=== PATIENT | female | born 1995 | race Caucasian/White ===

== ENCOUNTER → 2020-04-01 | Outpatient (CLI) | payer BC, OTHER ==
--- NOTE | 2020-05-14 08:33 | REP ---
PELVIC ULTRASOUND INCLUDING TRANSABDOMINAL, ENDOVAGINAL, AND COLOR DOPPLER ASSESSMENT Delay in reporting results from hospital computer system malfunction from malware/ ransomware. HISTORY: Study is performed for polycystic ovarian syndrome (PCOS). FINDINGS: The uterus is anteverted and normal size measuring 8.3 x 4.0 x 4.9 cm. The endometrium is not thickened measuring 7.8 mm. I suspect there is a small volume of blood in the endometrial canal. The technologist indicates that the patient is currently bleeding at the time of the ultrasound examination. There is focal mildly heterogeneous myometrium at the uterine fundus, possibly a small fibroid. The right ovary measures 2.5 x 4.2 x 2.0 cm and is normal size. There are no dominant masses or cysts. There is vascular flow with the Doppler resistive index in the parenchymal arteries measuring 0.55. The left ovary is normal size measuring 1.9 x 3.0 x 2.1 cm. There are no dominant masses or cysts. There is vascular flow with the Doppler resistive index in the parenchymal arteries measuring 0.45. IMPRESSION: Essentially negative pelvic ultrasound except for focal mildly heterogeneous endometrium at the uterine fundus, possibly a small fibroid. I suspect there is a small volume of blood in the endometrial canal. The patient is bleeding at the time of the examination. MTDD
== END ==
LOC: M WHC 17:49
PROVIDERS: ATTEND Advanced Practice Midwife
DX: N92.0 Excessive and frequent menstruation with regular cycle (principal); Z87.42 Personal history of other diseases of the female genital tract

== ENCOUNTER → 2020-05-06 | Outpatient (REF) | payer OTHER | LOC: M SFHCWAGY 17:07 | PROVIDERS: ATTEND Advanced Practice Midwife | DX: Z12.4 Encounter for screening for malignant neoplasm of cervix (principal) ==

== ENCOUNTER → 2020-06-03 | Outpatient (REF) | payer OTHER ==
[2020-06-11 14:25] LABS: CHLAMYDIA DNA AMPLIFICATION NEGATIVE (NEGATIVE); GC DNA AMPLIFICATION NEGATIVE (NEGATIVE)
== END ==
LOC: M SFHCWAGY 09:57
PROVIDERS: ATTEND Advanced Practice Midwife
DX: Z97.5 Presence of (intrauterine) contraceptive device (principal)

== ENCOUNTER → 2020-06-08 | Outpatient (REF) | payer OTHER ==
[2020-06-08 19:03] LABS: FREE T4 0.97 NG/DL (0.76-1.46); THYROID STIMULATING HORMONE 1.13 uIU/ML (0.358-3.740)
== END ==
LOC: M PLALAB 14:38
PROVIDERS: ATTEND Advanced Practice Midwife
DX: Z76.89 Persons encountering health services in other specified circumstances (principal); E55.9 Vitamin D deficiency, unspecified

== ENCOUNTER → 2020-06-16 | Outpatient (REF) | payer OTHER ==
[2020-06-16 15:22] LABS: BASO # 0.1 10^3/uL (0.0-0.2); EOS # 0.3 10^3/uL (0.0-0.5); HEMATOCRIT 40.8 % (36.0-47.0); HEMOGLOBIN 12.6 g/dl (12.0-15.5); LYMPH # 2.5 10^3/uL (1.5-5.0); LYMPH % 22.7 % (24.0-44.0); MEAN CORPUSCULAR HEMOGLOBIN 26.4 pg (27.0-33.0); MEAN CORPUSCULAR HGB CONC 30.9 g/dl (32.0-36.5); MEAN CORPUSCULAR VOLUME 85.4 fl (80.0-96.0); MONO # 0.8 10^3/uL (0.0-0.8); MONO % 7.2 % (0.0-5.0); NEUTROPHILS # 7.4 10^3/uL (1.5-8.5); NEUTROPHILS % 65.8 % (36.0-66.0); PLATELET COUNT, AUTOMATED 381 10^3/uL (150-450); RED BLOOD COUNT 4.78 10^6/uL (4.00-5.40); WHITE BLOOD COUNT 11.2 10^3/uL (4.0-10.0)
== END ==
LOC: M SFHCLERA 14:02
PROVIDERS: ATTEND Nurse Practitioner Family
DX: J03.80 Acute tonsillitis due to other specified organisms (principal)

== ENCOUNTER → 2020-07-09 | Outpatient (CLI) | payer OTHER ==
[2020-07-09 13:38] LABS: BASO # 0.1 10^3/uL (0.0-0.2); BASO % 1.2 % (0.0-1.0); EOS # 0.3 10^3/uL (0.0-0.5); EOS % 2.9 % (0.0-3.0); HEMOGLOBIN 12.4 g/dl (12.0-15.5); LYMPH # 2.5 10^3/uL (1.5-5.0); LYMPH % 23.9 % (24.0-44.0); MEAN CORPUSCULAR HEMOGLOBIN 25.8 pg (27.0-33.0); MEAN CORPUSCULAR HGB CONC 30.2 g/dl (32.0-36.5); MEAN CORPUSCULAR VOLUME 85.4 fl (80.0-96.0); MONO # 0.7 10^3/uL (0.0-0.8); MONO % 6.8 % (0.0-5.0); NEUTROPHILS # 6.8 10^3/uL (1.5-8.5); NEUTROPHILS % 64.9 % (36.0-66.0); PLATELET COUNT, AUTOMATED 437 10^3/uL (150-450); WHITE BLOOD COUNT 10.5 10^3/uL (4.0-10.0)
[2020-07-09 13:40] LABS: AMORPHOUS SEDIMENT SMALL (NEGATIVE); APPEARANCE, URINE HAZY (CLEAR); BACTERIA, URINE AUTO NEGATIVE (NEGATIVE); BILIRUBIN, URINE AUTO NEGATIVE (NEGATIVE); BLOOD, URINE BLOOD 2+ (NEGATIVE); COLOR, URINE YELLOW (YELLOW); GLUCOSE, URINE (UA) AUTO NEGATIVE (NEGATIVE); KETONE, URINE AUTO TRACE mg/dL (NEGATIVE); LEUKOCYTE ESTERASE, URINE AUTO NEGATIVE (NEGATIVE); MUCUS, URINE SMALL (NEGATIVE); NITRITE, URINE AUTO NEGATIVE (NEGATIVE); PROTEIN, URINE AUTO NEGATIVE (NEGATIVE); RBC, URINE AUTO 8 /HPF (0-3); SPECIFIC GRAVITY URINE AUTO 1.026 (1.002-1.035); SQUAMOUS EPITHELIAL CELL UR AU 6 /HPF (0-6); UROBILINOGEN, URINE AUTO 0.2 mg/dL (0.0-2.0); WBC, URINE AUTO 2 /HPF (0-3)
[2020-07-09 13:48] LABS: INR 0.95; PROTHROMBIN TIME 12.9 SECONDS (12.5-14.3)
[2020-07-09 14:16] LABS: ALT/SGPT 36 U/L (12-78); BILIRUBIN,TOTAL 0.2 MG/DL (0.2-1.0); BLOOD UREA NITROGEN 12 MG/DL (7-18); CALCIUM LEVEL 9.5 MG/DL (8.5-10.1); CARBON DIOXIDE LEVEL 29 MEQ/L (21-32); CHLORIDE LEVEL 104 MEQ/L (98-107); CHOLESTEROL LEVEL 172 MG/DL (<200); CHOLESTEROL RISK RATIO 5.058 (<5); CREATININE FOR GFR 0.64 MG/DL (0.55-1.30); FERRITIN 46 NG/ML (8-252); GLOMERULAR FILTRATION RATE > 60.0 (>60); GLUCOSE, FASTING 80 MG/DL (70-100); HDL CHOLESTEROL 34 MG/DL (>40); IRON (FE) 34 UG/DL (50-170); LDL CHOLESTEROL 112 MG/DL (<100); NON-HDL-C 138 MG/DL; PERCENT SATURATION 8.9 % (13.2-45.0); POTASSIUM SERUM 4.6 MEQ/L (3.5-5.1); SODIUM LEVEL 139 MEQ/L (136-145); TOTAL IRON BINDING CAPACITY 384 UG/DL (250-450); TOTAL PROTEIN 7.9 GM/DL (6.4-8.2); TRIGLYCERIDES LEVEL 132 MG/DL (<150)
[2020-07-09 14:19] LABS: VITAMIN B12 LEVEL 343 PG/ML (247-911)
[2020-07-09 14:20] LABS: FOLATE 12.8 NG/ML (>5.4)
[2020-07-09 14:28] LABS: HEMOGLOBIN A1c 5.6 %
== END ==
LOC: M PLALAB 12:04
PROVIDERS: ATTEND Surgery
DX: E66.01 Morbid (severe) obesity due to excess calories (principal)

== ENCOUNTER → 2020-07-09 | Outpatient (CLI) | payer BC, OTHER ==
--- NOTE | 2020-07-11 14:16 | ECGEPIP ---
[facility] Test Date: 2020-07-09 Pat Name: GARCIA BANKS Department: Room: - Gender: Female Credit Risk Manager: CAROLEE : 1995 Requested By: Natasha Vasquez Order Number: [id number] Reading MD: Darrell Art Measurements Intervals [place] Rate: 90 P: 9 OR: 120 QRS: 14 QRSD: 87 T: 24 QT: 343 QTc: 420 Interpretive Statements SINUS RHYTHM No prior tracing in the system Electronically Signed on 07-11-2020 14:16:26 EST by Darrell Art
== END ==
LOC: M EKG 12:47
PROVIDERS: ATTEND Surgery
DX: E66.01 Morbid (severe) obesity due to excess calories (principal)

== ENCOUNTER → 2020-08-26 | Outpatient (CLI) | payer BC, OTHER ==
[~2020-08-26] MED LIST: CETI5SOL3 PO; OMEP40CA97 PO; SPIR100T3
== END ==
LOC: M LABSMTC 10:05
PROVIDERS: ATTEND Anesthesiology
DX: Z01.812 Encounter for preprocedural laboratory examination (principal); Z20.822 Contact with and (suspected) exposure to COVID-19

== ENCOUNTER 2020-08-31 09:27 | Day surgery (SDC) | payer BC, OTHER ==
[~2020-08-31] VITALS: Ht 165.1 cm; Wt 109.8 kg
[2020-08-31] MEDS ORDERED: MIDAZOLAM INJ 2MG/2ML VIAL (J2250 PER 1MG) As Ordered ONE (10:32)
[2020-08-31] MEDS ORDERED: METOCLOPRAMIDE INJ 10MG/2ML VIAL (J2765 PER 1) As Ordered ONE (10:32)
[2020-08-31] MEDS ORDERED: LIDOCAINE PRES-FREE 2% 10ML AMP As Ordered ONE (10:32)
[2020-08-31] MEDS ORDERED: ONDANSETRON 4MG/2ML VIAL As Ordered ONE (10:32)
[2020-08-31] MEDS ORDERED: ROCURONIUM BROMIDE 50 MG/5 ML VIAL As Ordered ONE (10:32)
[2020-08-31] MEDS ORDERED: dexameTHASONE 4 MG/ML 1ML VIAL (J1100 PER 1MG) As Ordered ONE (10:32)
[2020-08-31] MEDS ORDERED: propofoL 200 MG/20 ML VIAL As Ordered ONE (10:32)
[2020-08-31] MEDS ORDERED: fentaNYL 100 MCG/2 ML INJECTION (J3010) As Ordered ONE (10:33)
[2020-08-31] MEDS ORDERED: LIDOCAINE W/EPINEPHRINE 1% 20ML VIAL As Ordered ONE (10:34)
[2020-08-31] MEDS ORDERED: BUPIVACAINE/EPIN 0.5% 30 ML VIAL As Ordered ONE (10:34)
[2020-08-31] MEDS ORDERED: SUGAMMADEX SODIUM 500 MG/5 ML VIAL (BRIDION) As Ordered ONE (11:02)
[2020-08-31] MEDS ORDERED: KETOROLAC 60MG 2ML VIAL As Ordered ONE (11:07)
[2020-08-31] MEDS ORDERED: PERCOCET 5MG/325MG TAB As Ordered ONE (11:51)
[2020-08-31] MEDS ORDERED: fentaNYL 100 MCG/2 ML INJECTION (J3010) IV PRN (12:00)
[2020-08-31] MEDS ORDERED: ONDANSETRON 4MG/2ML VIAL IV PRN (12:00)
[2020-08-31] MEDS ORDERED: PERCOCET 5MG/325MG TAB PO PRN (12:00)
[2020-08-31] MEDS ORDERED: METOCLOPRAMIDE INJ 10MG/2ML VIAL (J2765 PER 1) IV PRN (12:00)
[2020-08-31] MEDS ORDERED: LR 1,000 ML IV SCH ×2 (12:00)
[2020-08-31 13:10] VITALS: BP 125/69
--- NOTE | 2020-08-31 14:36 | RO ---
OPERATIVE NOTE DATE OF OPERATION: 08/31/2020 PREOPERATIVE DIAGNOSIS: Chronic tonsillitis. POSTOPERATIVE DIAGNOSIS: Chronic tonsillitis. PROCEDURE: Tonsillectomy. ANESTHESIA: General. DESCRIPTION OF PROCEDURE: With the patient intubated the patient was draped in the usual manner. I infiltrated the tonsil with Lidocaine with Epinephrine and Marcaine. Bovie with mouth gag was inserted. With traction on the left tonsil I dissected the tonsil free from its bed on the left side. The base and apex areas were cauterized. The same procedure was performed on the right side. The patient tolerated the procedure well. No blood loss. The patient was extubated and transferred to the recovery room in excellent condition.
== END 2020-08-31 13:20 | disposition home or self-care (01) ==
LOC: M SDC 09:27
PROVIDERS: ATTEND Otolaryngology
DX: J35.01 Chronic tonsillitis (principal); E28.2 Polycystic ovarian syndrome; M41.9 Scoliosis, unspecified; D64.9 Anemia, unspecified; F41.9 Anxiety disorder, unspecified; F32.9 Major depressive disorder, single episode, unspecified; Z88.0 Allergy status to penicillin; Z88.1 Allergy status to other antibiotic agents; Z91.040 Latex allergy status; Z91.048 Other nonmedicinal substance allergy status
CPT/HCPCS: 42826; 81025; 88302; J1100; J1885; J2250; J2405; J2765; J3010

== ENCOUNTER → 2020-12-15 | Outpatient (CLI) | payer BC, OTHER ==
--- NOTE | 2020-12-16 12:44 | SLEEPHOME ---
DATE: 12/15/2020 ORDERED BY: IKE Estrada Diagnostic home sleep testing was performed due to concern for the obstructive sleep apnea syndrome. For testing, a nocturnal T3 respiratory monitoring device was used. Continuous record was made of pulse, oxygen saturation, air flow, chest and abdominal strain, and body position. Nine hours and 39 minutes of data were reviewed. There were 5 hours and 58 minutes marked as time in bed and during the interval marked time in bed, there were 48 respiratory events identified of 10 seconds in duration or greater for a respiratory event index of 8. The events were not exclusive to sleep position. They were obstructive. Baseline pulse rate was 62. Pulse rate ranged 39 to 131. Baseline saturation was 96%. Saturations fell to 90% and testing was performed in both the supine and nonsupine positions. IMPRESSION: Abnormal home sleep testing with repetitive respiratory events and oxygen desaturations to 90% with a respiratory event index of 8 is consistent with the obstructive sleep apnea syndrome. RECOMMENDATION: The patient should be encouraged to undergo a formal sleep evaluation. Dr. Sienna White
== END ==
LOC: M SLEEP HO 12:22
PROVIDERS: ATTEND Nurse Practitioner Family
DX: R06.83 Snoring (principal)

== ENCOUNTER → 2021-01-12 | Outpatient (REF) | payer OTHER ==
[2021-01-12 17:42] LABS: BASO # 0.1 10^3/uL (0.0-0.2); BASO % 1.1 % (0.0-1.0); EOS # 0.4 10^3/uL (0.0-0.5); HEMATOCRIT 41.3 % (36.0-47.0); HEMOGLOBIN 12.7 g/dl (12.0-15.5); LYMPH # 2.5 10^3/uL (1.5-5.0); LYMPH % 28.2 % (24.0-44.0); MEAN CORPUSCULAR HEMOGLOBIN 27.4 pg (27.0-33.0); MEAN CORPUSCULAR HGB CONC 30.8 g/dl (32.0-36.5); MEAN CORPUSCULAR VOLUME 89.2 fl (80.0-96.0); MONO # 0.6 10^3/uL (0.0-0.8); MONO % 6.7 % (2.0-8.0); NEUTROPHILS # 5.3 10^3/uL (1.5-8.5); NEUTROPHILS % 59.7 % (36.0-66.0); PLATELET COUNT, AUTOMATED 369 10^3/uL (150-450); RED BLOOD COUNT 4.63 10^6/uL (4.00-5.40); WHITE BLOOD COUNT 8.9 10^3/uL (4.0-10.0)
[2021-01-12 18:20] LABS: FREE T4 1.03 NG/DL (0.76-1.46); THYROID STIMULATING HORMONE 0.607 uIU/ML (0.358-3.740)
[2021-01-12 19:41] LABS: HEMOGLOBIN A1c 5.1 %
== END ==
LOC: M PLALAB 14:46
PROVIDERS: ATTEND Nurse Practitioner Family
DX: L65.9 Nonscarring hair loss, unspecified (principal)

== ENCOUNTER → 2021-02-01 | Outpatient (CLI) | payer BC, OTHER ==
--- NOTE | 2021-02-01 09:36 | REP ---
INDICATION: OTH SYMPTOMS AND SIGNS INVOLVING THE CIRC AND RESP SYSTEMS cough and congestion. COMPARISON: None. TECHNIQUE: PA/Lateral FINDINGS: Lungs: Clear, no infiltrate. Heart: Normal in size. Mediastinum: Mediastinal silhouette unremarkable. Pleural angles: Unremarkable.. Bones and soft tissues: Unremarkable. IMPRESSION: No acute pulmonary disease. <Electronically signed by Mehdi Lauren > 02/01/21 [id number]
== END ==
LOC: M RAD 09:13
PROVIDERS: ATTEND Nurse Practitioner Family
DX: R09.89 Other specified symptoms and signs involving the circulatory and respiratory systems (principal)

== ENCOUNTER → 2021-02-18 | Outpatient (CLI) | payer BC, OTHER ==
[~2021-02-18] MED LIST changes: +OMEP40CA4 PO; -OMEP40CA97 PO
[2021-02-18 15:54] LABS: HEMOGLOBIN A1c 5.5 %
[2021-02-18 16:03] LABS: FOLLICLE STIMULATING HORMONE 5.2 mIU/mL; LUTEINIZING HORMONE 9.4 mIU/mL
[2021-03-04 20:34] LABS: 17 HYDROXY PROGESTERONE 82 ng/dL (.); TESTOSTERONE FREE (DIRECT) 6.4 pg/mL (0.0-4.2)
== END ==
LOC: M PLALAB 13:02
PROVIDERS: ATTEND Advanced Practice Midwife
DX: E28.2 Polycystic ovarian syndrome (principal)

== ENCOUNTER → 2021-03-26 | Outpatient (CLI) | payer BC, OTHER | LOC: M LAB 11:58 | PROVIDERS: ATTEND Advanced Practice Midwife | DX: E28.2 Polycystic ovarian syndrome (principal) ==

== ENCOUNTER → 2021-07-01 | Outpatient (CLI) | payer BC, OTHER ==
--- NOTE | 2021-07-01 14:56 | REP ---
Normal Doppler tracing with resistive index 0.48 and normal color flow no solid adnexal mass in either side nor adjacent free fluid. No fluid in the cul-de-sac. INDICATION: ABNORMAL UTERINE BLEEDING. COMPARISON: 04/01/2020 TECHNIQUE: Transabdominal and endovaginal probe images. FINDINGS: Using the bladder is acoustic window pelvis shows the bladder 6.7 x 7.1 x 6.3 cm in diameter. Uterus is anteverted and it measures 8.5 x 4.7 x 5.9 cm. The central endometrial echogenic stripe has a thickness of 11 mm without fluid in the endometrial cavity or endocervical canal. There is a nabothian cyst evident about 6 mm. The right ovary is 4 x 2.8 x 2.9 cm and shows normal doppler tracing with resistive index 0.69 and normal color flow. The left ovary is 2.2 x 3.3 x 2.5 cm with normal Doppler tracing resistive index of 0.48 normal color flow on the left side. Both ovaries show a few small subcentimeter follicles. No adjacent fluid to the ovaries or in the cul-de-sac. IMPRESSION: 1. Uterus, endometrial stripe and ovaries without mass or significant finding. Endometrial stripe of 11 mm shows no heterogeneity or fluid within. 2. Ovaries show a few small subcentimeter follicles but show normal Doppler tracings and color flow. No adjacent free fluid to the ovaries or in the cul-de-sac. 3. 6 mm nabothian cyst seen in the cervix. <Electronically signed by Scotty Bedolla > 07/01/21 [id number]
== END ==
LOC: M SFHCWAGY 12:54
PROVIDERS: ATTEND Obstetrics & Gynecology
DX: N88.8 Other specified noninflammatory disorders of cervix uteri (principal); N93.9 Abnormal uterine and vaginal bleeding, unspecified

== ENCOUNTER 2021-11-18 04:53 | Emergency (ER) | payer BC, OTHER ==
[~2021-11-18] VITALS: Ht 165.1 cm; Wt 115.0 kg
[2021-11-18] MEDS ORDERED: MULTTAB20 PO (05:04)
[2021-11-18] MEDS ORDERED: METF500T13 (05:04)
[2021-11-18] MEDS ORDERED: VITAD400CA FT (05:07)
[2021-11-18] MEDS ORDERED: KETOROLAC 30 MG/ML 1ML VIAL IV ONE (07:20)
[2021-11-18 07:48] LABS: BASO % 0.4 % (0.0-1.0); EOS # 0.2 10^3/uL (0.0-0.5); EOS % 2.6 % (0.0-3.0); HEMATOCRIT 40.6 % (36.0-47.0); HEMOGLOBIN 12.7 g/dl (12.0-15.5); LYMPH # 2.6 10^3/uL (1.5-5.0); LYMPH % 28.2 % (24.0-44.0); MEAN CORPUSCULAR HEMOGLOBIN 27.2 pg (27.0-33.0); MEAN CORPUSCULAR HGB CONC 31.3 g/dl (32.0-36.5); MEAN CORPUSCULAR VOLUME 86.9 fl (80.0-96.0); MONO # 0.6 10^3/uL (0.0-0.8); MONO % 6.9 % (2.0-8.0); NEUTROPHILS # 5.7 10^3/uL (1.5-8.5); NEUTROPHILS % 61.5 % (36.0-66.0); PLATELET COUNT, AUTOMATED 331 10^3/uL (150-450); RED BLOOD COUNT 4.67 10^6/uL (4.00-5.40); WHITE BLOOD COUNT 9.3 10^3/uL (4.0-10.0)
[2021-11-18 08:11] LABS: ALBUMIN 4.1 GM/DL (3.2-5.2); ALT/SGPT 54 U/L (12-78); BILIRUBIN,DIRECT 0.1 MG/DL (0.0-0.2); BILIRUBIN,TOTAL 0.5 MG/DL (0.2-1.0); BLOOD UREA NITROGEN 12 MG/DL (7-18); CALCIUM LEVEL 9.3 MG/DL (8.5-10.1); CARBON DIOXIDE LEVEL 28 MEQ/L (21-32); CHLORIDE LEVEL 105 MEQ/L (98-107); CREATININE FOR GFR 0.74 MG/DL (0.55-1.30); GLOMERULAR FILTRATION RATE > 60.0 (>60); GLUCOSE, FASTING 98 MG/DL (70-100); LIPASE 77 U/L (73-393); POTASSIUM SERUM 4.6 MEQ/L (3.5-5.1); SODIUM LEVEL 138 MEQ/L (136-145); TOTAL PROTEIN 7.8 GM/DL (6.4-8.2)
[2021-11-18 09:19] VITALS: BP 111/67
[2021-11-18] MEDS ORDERED: FLOM0.4C39 PO (09:31)
[2021-11-18] MEDS ORDERED: KETO10TAB PO (09:31)
== END 2021-11-18 09:49 | disposition home or self-care (01) ==
LOC: M ED 04:53
DX: N20.1 Calculus of ureter (principal); E28.2 Polycystic ovarian syndrome; Z88.0 Allergy status to penicillin; Z91.048 Other nonmedicinal substance allergy status; Z91.040 Latex allergy status; Z83.79 Family history of other diseases of the digestive system; Z79.899 Other long term (current) drug therapy
CPT/HCPCS: 74176; 80048; 80076; 81001; 83690; 84702; 85025; 96374; 99284; J1885

== ENCOUNTER → 2022-01-14 | Outpatient (CLI) | payer OTHER ==
[~2022-01-14] MED LIST changes: +FLOM0.4C39 PO; +KETO10TAB PO; +METF500T13; +MULTTAB20 PO; +VITAD400CA FT
[2022-01-14 14:03] LABS: ESTRADIOL 99.3 PG/ML; PROGESTERONE 37.24 NG/ML
== END ==
LOC: M LAB 12:37
PROVIDERS: ATTEND Obstetrics & Gynecology Reproductive Endocrinology
DX: Z31.49 Encounter for other procreative investigation and testing (principal)

== ENCOUNTER → 2022-01-28 | Outpatient (CLI) | payer OTHER ==
[2022-01-28 11:42] LABS: ESTRADIOL 723.3 PG/ML; PROGESTERONE 43.2 NG/ML; THYROID STIMULATING HORMONE 0.51 uIU/ML (0.358-3.740)
== END ==
LOC: M LAB 10:32
PROVIDERS: ATTEND Obstetrics & Gynecology Reproductive Endocrinology
DX: O09.00 Supervision of pregnancy with history of infertility, unspecified trimester (principal); Z3A.00 Weeks of gestation of pregnancy not specified; Z79.899 Other long term (current) drug therapy

== ENCOUNTER → 2022-03-14 | Outpatient (CLI) | payer OTHER ==
[2022-03-14 16:38] LABS: BASO # 0.1 10^3/uL (0.0-0.2); EOS # 0.3 10^3/uL (0.0-0.5); EOS % 2.7 % (0.0-3.0); HEMATOCRIT 38.5 % (36.0-47.0); LYMPH # 2.6 10^3/uL (1.5-5.0); LYMPH % 27.1 % (24.0-44.0); MEAN CORPUSCULAR HGB CONC 31.2 g/dl (32.0-36.5); MEAN CORPUSCULAR VOLUME 83.5 fl (80.0-96.0); MONO # 0.7 10^3/uL (0.0-0.8); MONO % 7.2 % (2.0-8.0); NEUTROPHILS # 5.9 10^3/uL (1.5-8.5); NEUTROPHILS % 61.7 % (36.0-66.0); PLATELET COUNT, AUTOMATED 359 10^3/uL (150-450); RED BLOOD COUNT 4.61 10^6/uL (4.00-5.40); WHITE BLOOD COUNT 9.6 10^3/uL (4.0-10.0)
[2022-03-15 12:44] LABS: HEPATITIS C VIRUS ABY INDEX < 0.0 INDEX (<0.8); HIV 1&2 SCREEN CENTAUR NEGATIVE (NEGATIVE)
== END ==
LOC: M PLALAB 12:32
PROVIDERS: ATTEND Obstetrics & Gynecology
DX: O09.811 Supervision of pregnancy resulting from assisted reproductive technology, first trimester (principal)

== ENCOUNTER → 2022-04-04 | Outpatient (CLI) | payer OTHER | LOC: M PLALAB 14:09 | PROVIDERS: ATTEND Obstetrics & Gynecology | DX: Z34.82 Encounter for supervision of other normal pregnancy, second trimester (principal) ==

== ENCOUNTER → 2022-05-09 | Outpatient (CLI) | payer OTHER | LOC: M WHC 12:32 | PROVIDERS: ATTEND Advanced Practice Midwife | DX: O09.812 Supervision of pregnancy resulting from assisted reproductive technology, second trimester (principal); Z3A.19 19 weeks gestation of pregnancy ==

== ENCOUNTER → 2022-05-09 | Outpatient (CLI) | payer OTHER | LOC: M PLALAB 13:37 | PROVIDERS: ATTEND Obstetrics & Gynecology | DX: Z34.82 Encounter for supervision of other normal pregnancy, second trimester (principal); Z3A.00 Weeks of gestation of pregnancy not specified ==

== ENCOUNTER → 2022-05-25 | Outpatient (CLI) | payer OTHER | LOC: M WHC 13:09 | PROVIDERS: ATTEND Advanced Practice Midwife | DX: O09.812 Supervision of pregnancy resulting from assisted reproductive technology, second trimester (principal); Z3A.21 21 weeks gestation of pregnancy ==

== ENCOUNTER → 2022-06-08 | Outpatient (CLI) | payer OTHER ==
[2022-06-08 16:47] LABS: ALBUMIN 3.4 GM/DL (3.2-5.2); ALT/SGPT 25 U/L (12-78); BILIRUBIN,TOTAL 0.3 MG/DL (0.2-1.0); BLOOD UREA NITROGEN 5 MG/DL (7-18); CALCIUM LEVEL 9.3 MG/DL (8.5-10.1); CARBON DIOXIDE LEVEL 24 MEQ/L (21-32); CHLORIDE LEVEL 104 MEQ/L (98-107); CREATININE FOR GFR 0.44 MG/DL (0.55-1.30); GLOMERULAR FILTRATION RATE > 60.0 (>60); GLUCOSE, FASTING 80 MG/DL (70-100); POTASSIUM SERUM 4.4 MEQ/L (3.5-5.1); SODIUM LEVEL 137 MEQ/L (136-145); TOTAL PROTEIN 7.3 GM/DL (6.4-8.2)
== END ==
LOC: M PLALAB 11:53
PROVIDERS: ATTEND Obstetrics & Gynecology
DX: O99.713 Diseases of the skin and subcutaneous tissue complicating pregnancy, third trimester (principal); Z3A.00 Weeks of gestation of pregnancy not specified
CPT/HCPCS: 36415; 80053; 82239; G0463

== ENCOUNTER → 2022-07-28 | Outpatient (CLI) | payer OTHER ==
[2022-07-28 15:49] LABS: HEMATOCRIT 34.5 % (36.0-47.0); HEMOGLOBIN 10.8 g/dl (12.0-15.5); MEAN CORPUSCULAR HEMOGLOBIN 26.8 pg (27.0-33.0); MEAN CORPUSCULAR HGB CONC 31.3 g/dl (32.0-36.5); MEAN CORPUSCULAR VOLUME 85.6 fl (80.0-96.0); PLATELET COUNT, AUTOMATED 329 10^3/uL (150-450); RED BLOOD COUNT 4.03 10^6/uL (4.00-5.40); WHITE BLOOD COUNT 8.1 10^3/uL (4.0-10.0)
[2022-07-28 17:35] LABS: HEMOGLOBIN A1c 4.8 % (4.0-6.0)
== END ==
LOC: M PLALAB 12:19
PROVIDERS: ATTEND Advanced Practice Midwife
DX: Z36.9 Encounter for antenatal screening, unspecified (principal)

== ENCOUNTER → 2022-09-05 | Outpatient (REF) | payer OTHER | LOC: M PLALAB 15:17 | PROVIDERS: ATTEND Obstetrics & Gynecology | DX: Z34.93 Encounter for supervision of normal pregnancy, unspecified, third trimester (principal) ==

== ENCOUNTER 2022-10-01 07:40 | Inpatient (IN) | payer OTHER ==
[~2022-10-01] VITALS: Ht 165.1 cm; Wt 109.3 kg
[2022-10-01] VITALS (33 sets, daily range): BP systolic 103–172; BP diastolic 55–99
[2022-10-01] MEDS ORDERED: OMEP10CASR PO (08:08)
[2022-10-01] MEDS ORDERED: HOME MED LIST COMPLETE! XX SCH (08:40)
[2022-10-01] MEDS ORDERED: LACTATED RINGER'S 1000 ML IV STA (09:53)
[2022-10-01] MEDS ORDERED: METHYLERGONOVINE MALEATE 0.2MG/ML 1ML VIAL IM PRN (09:55)
[2022-10-01] MEDS ORDERED: LIDOCAINE 1% MDV 20ML VIAL INFIL PRN (09:55)
[2022-10-01] MEDS ORDERED: CARBOPROST TROMETHAMINE 250 MCG/ML AMP IM PRN (09:55)
[2022-10-01] MEDS ORDERED: TRANEXAMIC ACID INJection 1,000 MG in NS 100 ML IV PRN (09:55)
[2022-10-01] MEDS: OMEPRAZOLE 20MG CAP PO SCH (11:12)
[2022-10-01] MEDS: LR 1,000 ML IV SCH ×2 (11:13→15:03)
[2022-10-01 11:18] LABS: HEMATOCRIT 33.6 % (36.0-47.0); HEMOGLOBIN 10.4 g/dl (12.0-15.5); MEAN CORPUSCULAR HEMOGLOBIN 25.2 pg (27.0-33.0); MEAN CORPUSCULAR VOLUME 81.4 fl (80.0-96.0); PLATELET COUNT, AUTOMATED 294 10^3/uL (150-450); RED BLOOD COUNT 4.13 10^6/uL (4.00-5.40); WHITE BLOOD COUNT 8.8 10^3/uL (4.0-10.0)
[2022-10-01] MEDS ORDERED: OXYTOCIN DRIP 30 UNITS in IV 1 EA IV PRN (12:05)
[2022-10-01] MEDS ORDERED: OXYTOCIN DRIP 30 UNITS in IV 1 EA IV SCH ×2 (12:05→17:55)
[2022-10-01] MEDS ORDERED: ONDANSETRON 4MG 2ML VIAL IV PRN (14:35)
[2022-10-01] MEDS ORDERED: LR 500 ML IV PRN (14:35)
[2022-10-01] MEDS ORDERED: NALOXONE INJ 0.4MG/1ML VIAL IV PRN (14:35)
[2022-10-01] MEDS ORDERED: ePHEDrine SULFATE 25 MG/5 ML(5MG/ML) SYRINGE IVP PRN (14:35)
[2022-10-01] MEDS ORDERED: diphenhydrAMINE 50MG/ML VIAL IV PRN (14:35)
[2022-10-01] MEDS ORDERED: EPIDURAL/PCA KEYS XX PRN (14:35)
[2022-10-01] MEDS: FENTANYL/ROPIVACAINE/NACL BAG 100 ML EPIDURAL SCH (15:10)
[2022-10-01] MEDS ORDERED: RHOGAM 300MCG (1500IU) INJ IM SCH (17:55)
[2022-10-01] MEDS ORDERED: IBUPROFEN 600MG TAB PO PRN (17:55)
[2022-10-01] MEDS ORDERED: IBUPROFEN 800 MG TAB PO PRN (17:55)
[2022-10-01] MEDS ORDERED: DIBUCAINE 1% OINTMENT 30GM TOP PRN (17:55)
[2022-10-01] MEDS ORDERED: ACETAMINOPHEN 500 MG TAB PO PRN (17:55)
[2022-10-01] MEDS ORDERED: DOCUSATE SODIUM 100MG CAPSULE PO PRN (17:55)
[2022-10-01] MEDS ORDERED: ACETAMINOPHEN TAB 650MG DOSE (2X325MG) PO PRN (17:55)
[2022-10-01] MEDS ORDERED: LR 1,000 ML IV SCH (17:55)
[2022-10-01 17:56] LABS: CORD GAS HCO3 A 20.9 MEQ/L; CORD GAS O2 SAT A 75.8 %; CORD GAS PCO2 A 34.7 mmHg; CORD GAS PH A 7.397 UNITS; CORD GAS PO2 A 29.6 mmHg; CORD GAS SBC A 21.4 MEQ/L; CORD GAS TCO2 A 21.9 MEQ/L
[2022-10-01 17:57] LABS: CORD GAS ABE V 0.3; CORD GAS HCO3 V 25.2 MEQ/L; CORD GAS O2 SAT V 74.8 %; CORD GAS PCO2 V 41.6 mmHg; CORD GAS PH V 7.4 UNITS; CORD GAS PO2 V 30.2 mmHg; CORD GAS TCO2 V 26.5 MEQ/L
[2022-10-01] MEDS ORDERED: SLF 3 ML SYR IV PRN (18:50)
[2022-10-01] MEDS ORDERED: CETIRIZINE (ZyrTEC) 10 MG TAB PO SCH (21:00)
[2022-10-01] MEDS: SLF 3 ML SYR IV SCH (22:29)
[2022-10-02] MEDS: FENTANYL/ROPIVACAINE/NACL BAG 100 ML EPIDURAL SCH (00:06)
[2022-10-02 05:39] VITALS: BP 131/86
[2022-10-02] MEDS: SLF 3 ML SYR IV SCH (06:27)
[2022-10-02] MEDS ORDERED: PRENATAL VITAMINS CHEWABLE TABLET PO SCH (09:00)
[2022-10-02] MEDS: OMEPRAZOLE 20MG CAP PO SCH (09:25)
[2022-10-03] MEDS ORDERED: MEASLES,MUMPS,RUBELLA VACCINE INJ (MMR-II) SC.IMMUN ONE (09:00)
== END 2022-10-02 18:50 | disposition home or self-care (01) | DRG 807 ==
LOC: M LDI 07:40 → M OBS 20:41
PROVIDERS: ADMIT Obstetrics & Gynecology; ATTEND Obstetrics & Gynecology
PROC: 10E0XZZ Delivery of Products of Conception, External Approach (ICD-10-PCS; principal; 2022-10-01)
DX: O66.0 Obstructed labor due to shoulder dystocia (principal); Z37.0 Single live birth; Z3A.39 39 weeks gestation of pregnancy; Z91.040 Latex allergy status; Z88.0 Allergy status to penicillin; Z88.8 Allergy status to other drugs, medicaments and biological substances

== ENCOUNTER → 2022-10-23 | Outpatient (REF) | payer OTHER ==
[~2022-10-23] MED LIST changes: +OMEP10CASR PO
[2022-10-23 19:52] LABS: APPEARANCE, URINE CLEAR (CLEAR); BACTERIA, URINE AUTO NEGATIVE (NEGATIVE); BILIRUBIN, URINE AUTO NEGATIVE (NEGATIVE); BLOOD, URINE BLOOD 3+ (NEGATIVE); COLOR, URINE YELLOW (YELLOW); GLUCOSE, URINE (UA) AUTO NEGATIVE (NEGATIVE); KETONE, URINE AUTO NEGATIVE (NEGATIVE); LEUKOCYTE ESTERASE, URINE AUTO 1+ (NEGATIVE); NITRITE, URINE AUTO NEGATIVE (NEGATIVE); PROTEIN, URINE AUTO NEGATIVE (NEGATIVE); RBC, URINE AUTO 136 /HPF (0-3); SPECIFIC GRAVITY URINE AUTO 1.013 (1.002-1.035); SQUAMOUS EPITHELIAL CELL UR AU 1 /HPF (0-6); UROBILINOGEN, URINE AUTO 0.2 mg/dL (0.0-2.0); WBC, URINE AUTO 4 /HPF (0-3)
[2022-10-23 21:14] LABS: GC DNA AMPLIFICATION NEGATIVE (NEGATIVE)
== END ==
LOC: M LAB REF 19:36
PROVIDERS: ATTEND Physician Assistant Medical
DX: N39.0 Urinary tract infection, site not specified (principal)